=== PATIENT | female | born 1985 | race Caucasian/White ===

== ENCOUNTER 2023-11-07 11:48 | Inpatient (IN) | payer MEDICAID ==
[~2023-11-07] VITALS: Ht 172.7 cm; Wt 89.8 kg
[2023-11-07 12:03] VITALS: BP 118/73; PULSE 82; RESP 19; TEMP 96.9; O2SAT 100
[2023-11-07 12:27] LABS: BASOPHILS % (AUTO) 0.4 % (0.0-2.0); EOSINOPHILS % (AUTO) 0.1 % (0.0-4.0); HEMATOCRIT 30.3 % (36-48); LYMPHOCYTES # (AUTO) 1.4 K/uL (2.5-16.5); LYMPHOCYTES % (AUTO) 12.1 % (20.5-51.1); MEAN CORPUSCULAR HEMOGLOBIN 19 pg (27-31); MEAN CORPUSCULAR HGB CONC 30 g/dL (33-37); MEAN CORPUSCULAR VOLUME 62.2 fL (80-94); MONOCYTES # (AUTO) 0.4 K/uL (0.8-1.0); NEUTROPHILS # (AUTO) 10.1 K/uL (1.8-7.7); NEUTROPHILS % (AUTO) 84.4 % (42.2-75.2); PLATELET COUNT (AUTO) 413 K/uL (140-450); RED BLOOD CELL COUNT(AUTO) 4.87 MIL/uL (4.20-5.40); RED CELL DISTRIBUTION WIDTH 18.7 % (11.6-13.7); WHITE BLOOD COUNT (AUTO) 11.9 K/uL (4.8-10.8)
[2023-11-07 12:29] LABS: APPEARANCE,URINE CLEAR (CLEAR); BILIRUBIN,URINE 1+ (NEGATIVE); BLOOD, URINE NEGATIVE (NEGATIVE); COLOR,URINE YELLOW (YELLOW); LEUKOCYTE ESTERASE ,URINE TRACE (NEGATIVE); NITRITE, URINE NEGATIVE (NEGATIVE); PH,URINE 6.5 (5.0-9.0); PROTEIN,URINE TRACE (NEGATIVE); UGLUCOSE NEGATIVE (NEGATIVE)
[2023-11-07 12:38] LABS: ANION GAP 12.9 (8-16); CARBON DIOXIDE 25.5 mmol/L (21-32); CREATININE 0.7 mg/dL (0.6-1.3); POTASSIUM 3.4 mmol/L (3.5-5.1)
[2023-11-07 12:44] LABS: ALBUMIN 3.9 g/dL (3.4-5.0); BILIRUBIN,DIRECT 0.1 mg/dL (0.0-0.3); TOTAL BILIRUBIN 0.5 mg/dL (0.0-1.0); TOTAL PROTEIN, SERUM 8.1 g/dL (6.4-8.2)
[2023-11-07] MEDS: KETOROLAC 30 MG/ML VIAL IVP ONE (13:04)
[2023-11-07] MEDS: ONDANSETRON 4 MG/2 ML VIAL IVP ONE (13:08)
[2023-11-07] MEDS: NACL 0.9% 1,000 ML IV ONE (13:10)
[2023-11-07 13:23] LABS: BACTERIA,URINE >30 (MANY) /HPF (None Seen); ICTOTEST NEGATIVE (NEGATIVE); RBC,URINE 0-5 /HPF (0-5); SQUAMOUS EPITHELIAL CELL,UR 4-10 (MOD) /LPF (0-3 (FEW)); WBC,URINE 0-5 /HPF (0-5)
[2023-11-07] MEDS ORDERED: cefTRIAXone 1,000 MG VIAL ONE (14:11)
[2023-11-07] MEDS ORDERED: ONDANSETRON 4 MG/2 ML VIAL IVP PRN (14:25)
[2023-11-07] MEDS ORDERED: HYDROcodone/APAP 5/325 MG 1 TAB TAB PO PRN (14:25)
[2023-11-07] MEDS ORDERED: DEXT 5% / NACL 0.45% 1,000 ML IV SCH (14:25)
[2023-11-07] MEDS: MORPHINE SULFATE 4 MG/ML SYR IVP PRN (16:31)
[2023-11-07 19:25] VITALS: PULSE 66; RESP 18; O2SAT 97
[2023-11-07 20:05] VITALS: PULSE 78
[2023-11-08] VITALS: BP 96/57; PULSE 76; RESP 18; TEMP 97.5; O2SAT 100
[2023-11-08 00:09] VITALS: PULSE 84
[2023-11-08 04:00] VITALS: BP 118/59; PULSE 72; PULSE 76; RESP 18; TEMP 98.1; O2SAT 96
[2023-11-08] MEDS ORDERED: ZOLPIDEM 10 MG TAB PO PRN (06:30)
[2023-11-08] MEDS ORDERED: POTASSIUM CHLORIDE 10 MEQ TABER PO PRN (06:30)
[2023-11-08] MEDS ORDERED: MAG SULF 2000 MG/WATER PREMIX 50 ML IV PRN (06:30)
[2023-11-08 06:39] LABS: BASOPHILS % (AUTO) 0.1 % (0.0-2.0); EOSINOPHILS % (AUTO) 0.1 % (0.0-4.0); HEMATOCRIT 26.6 % (36-48); HEMOGLOBIN 8.1 g/dL (12.0-16.0); LYMPHOCYTES # (AUTO) 0.9 K/uL (2.5-16.5); LYMPHOCYTES % (AUTO) 12.8 % (20.5-51.1); MEAN CORPUSCULAR HEMOGLOBIN 19 pg (27-31); MEAN CORPUSCULAR HGB CONC 30 g/dL (33-37); MEAN CORPUSCULAR VOLUME 61.7 fL (80-94); MONOCYTES # (AUTO) 0.6 K/uL (0.8-1.0); MONOCYTES % (AUTO) 8.6 % (1.7-9.3); NEUTROPHILS # (AUTO) 5.5 K/uL (1.8-7.7); NEUTROPHILS % (AUTO) 78.4 % (42.2-75.2); PLATELET COUNT (AUTO) 308 K/uL (140-450); RED BLOOD CELL COUNT(AUTO) 4.32 MIL/uL (4.20-5.40); RED CELL DISTRIBUTION WIDTH 18.4 % (11.6-13.7)
[2023-11-08] MEDS: POTASSIUM CHLORIDE 10 MEQ TABER PO ONE (06:49)
[2023-11-08 07:03] LABS: ALBUMIN 3.1 g/dL (3.4-5.0); ANION GAP 13.2 (8-16); CALCIUM 8.1 mg/dL (8.5-10.1); CARBON DIOXIDE 25.3 mmol/L (21-32); CREATININE 0.7 mg/dL (0.6-1.3); POTASSIUM 3.5 mmol/L (3.5-5.1); TOTAL BILIRUBIN 0.4 mg/dL (0.0-1.0); TOTAL PROTEIN, SERUM 6.7 g/dL (6.4-8.2)
[2023-11-08 08:00] VITALS: BP 109/61; PULSE 68; RESP 16; RESP 18; TEMP 98.5; O2SAT 99
[2023-11-08] MEDS ORDERED: CIPR500T4 PO (11:07)
[2023-11-08] MEDS ORDERED: ONDA-188 SL (11:07)
[2023-11-08] MEDS ORDERED: METR-435 PO (11:07)
[2023-11-08 12:00] VITALS: BP 105/77; PULSE 78; RESP 16; TEMP 98.6; O2SAT 99
[2023-11-08 12:53] VITALS: BP 105/77; PULSE 78; RESP 16; TEMP 98.6
[2023-11-08] MEDS: metroNIDAZOLE 500 MG/NS PREMIX 100 ML IV SCH (13:16)
== END 2023-11-08 14:30 | disposition home or self-care (01) | DRG 244 ==
LOC: MED 11:48 → MTU 14:52
PROVIDERS: ADMIT Family Medicine; ATTEND Family Medicine
DX: K57.32 Diverticulitis of large intestine without perforation or abscess without bleeding (principal); R65.10 Systemic inflammatory response syndrome (SIRS) of non-infectious origin without acute organ dysfunction; K52.9 Noninfective gastroenteritis and colitis, unspecified; D50.9 Iron deficiency anemia, unspecified; Z90.49 Acquired absence of other specified parts of digestive tract
CPT/HCPCS: 36415; 80048; 80053; 80076; 81001; 83690; 85025; 87040; 87081; 87086; 96365; 96375; 99285; J0696; J1885; J2270; J2405; J3490; J7060; Q9967